=== PATIENT | female | born 1985 | race Caucasian/White ===

== ENCOUNTER 2025-04-25 08:46 | Emergency (ER) | payer OTHER, SELFPAY ==
[2025-04-25 08:59] VITALS: BP 131/79
[2025-04-25 09:29] LABS: Hematocrit 41.3 % (37.0-47.0); Hemoglobin 13.8 g/dL (12.0-16.0); Mean Corp Hgb Conc. 33.4 g/dL (33.0-37.0); Mean Corpuscular Volume 90.0 fL (81.0-99.0); Nucleated Red Blood Cells % 0 %; Platelet Count 211 10^3/uL (130-400); Red Cell Dist. Width 12.7 % (11.5-14.5)
[2025-04-25 09:44] LABS: HCG, Serum Qualitative Screen Negative
[2025-04-25 09:48] LABS: ALT (SGPT) 24 U/L (0-35); AST (SGOT) 19 U/L (14-36); Albumin 4.3 g/dl (3.5-5.0); Alkaline Phosphatase 53 U/L (38-126); Blood Urea Nitrogen 17 mg/dl (7-17); Calcium 9.3 mg/dl (8.4-10.2); Carbon Dioxide 28 mmol/L (22-30); Chloride 106 mmol/L (98-107); Glucose 98 mg/dl (70-99); Potassium 3.9 mmol/L (3.5-5.1); Sodium 137 mmol/L (135-145); Total Protein 7.3 g/dl (6.3-8.2); eGFR > 60.00
[2025-04-25 09:52] LABS: Troponin I < 0.012 ng/ml
--- NOTE | 2025-04-25 10:51 | ED.GENMED ---
History of Present Illness
General
Chief Complaint: Headache
Source: patient
Exam Limitations: none
Time Seen by Provider: 04/25/25 10:36
Nursing documentation reviewed up to this point in time: agreed with
History of Present Illness
History of Present Illness:
Patient is a 39-year-old female who presents to the ER for various complaints. She reports over the past several months she has had worsening of her eczema and has been followed up with dermatology for that. She has been under a lot of stress as
several months ago her parents both within 3 weeks apart of each other. She has also been eval by rheumatology for recent joint pain and tested positive for MAURA with plans for repeat blood work in the next several months. Patient
presents today for also evaluation of intermittent chest discomfort and headaches. She reports intermittently she will have some pulsating in her head and yesterday this occurred. She went to urgent care and her blood pressure was okay although at
home it was 139/92. She has no previous history of hypertension. She has had some mild chest tightness denies any shortness of breath. Currently she feels some discomfort behind her both eyes. She has been using Tylenol Motrin for pain. She
denies any recent injury fever chills. She also feels that her face feels off tight she feels as if it is swollen denies any difficulty swallowing redness fever chills.
Phy Exam
General Physical Exam
General Presentation: no apparent distress
General age: appears stated age
General Skin: dry
General Habitus: normal
General Mental: alert
General Hydration: appears well hydrated
ENT Exam
ENT Exam: EOMI and neck supple
Eye Exam
Eye Exam: PERRL and EOMI
Eye Exam General: PERRL: bilateral and EOM intact: bilateral
Pupil Exam: Bilateral: round and reactive
Cardiovascular Exam
Cardiovascular Exam: regular rate/rhythm, no murmur and normal peripheral pulses
Pulmonary Exam
Pulmonary Exam: lungs clear and no respiratory distress
Gastrointestinal Exam
Gastrointestinal Exam: non tender and soft
Neurological Exam
Neurological Exam: alert, oriented x3, no motor deficits, no sensory deficits and speech normal
Raymond Coma Scale
Eye Opening: Spontaneous
Verbal Response: Oriented
Motor Response: Obeys Commands
GCS Total Score: 15
Cerebellar
Cerebellar Function: normal finger to nose
Musculoskeletal Exam
Musculoskeletal Exam: full ROM
Skin Exam
Skin Exam: normal color, warm/dry and other (No obvious redness or swelling to face)
Psychiatric Exam
Psychiatric Exam: normal mood/affect
Course
Orders/Labs/Results
Orders:
Orders
04/25/25 09:06
Electrocardiogram (*1) Urgent
Reason for Study: Abdominal Pain
EKG- Treatment ONCE
Test Result ONCE
04/25/25 09:13
Complete Blood Count/With Diff Urgent
Comprehensive Metabolic Panel Urgent
HCG, Serum Qualitative Screen Urgent
Comment: Notify provider if positive test present
Troponin I Urgent
04/25/25 10:52
CT Head W/o Iv Contrast Urgent
Comment:
Reason For Exam: headaches
Visual Acuity- Treatment ONCE
04/25/25 12:20
Acetaminophen [Tylenol] 1,000 mg PO NOW STA
Abnormal Lab Results
04/25/25
09:13
Creatinine 0.5 L mg/dL
(0.6-1.0)
04/25/25 09:13
04/25/25 09:13
Vital Signs
Initial and Last Documented VS:
Initial Vital Signs
Temp Pulse Resp BP Pulse Ox
98.7 F 80 20 131/79 100
04/25/25 08:59 04/25/25 08:59 04/25/25 08:59 04/25/25 08:59 04/25/25 08:59
Last Documented Vital Signs
Temp Pulse Resp BP Pulse Ox
98.7 F 68 22 120/69 100
04/25/25 08:59 04/25/25 13:00 04/25/25 13:00 04/25/25 13:00 04/25/25 13:00
MDM/Problems Addressed
Differential Diagnosis Includes:
Not limited to viral syndrome, URI
MDM/Problems Addressed:
Patient is a 39-year-old female with multiple complaints presents to the ER for evaluation. She is in no acute distress not hypoxic she does have a history of PCOS and eczema other than that no other significant medical history. She is
well-appearing her workup was unremarkable here including stable vital signs unremarkable labs negative cardiac troponin normal head CT and normal EKG. No acute cause of patient's symptoms however patient is very well-appearing nontoxic stable for
discharge home.. Patient patient has been following with dermatology rheumatology as well as her family doctor. Will have her follow up with her family doctor next of days for reevaluation.
*Radiology
Radiology exam reviewed: radiology read reviewed
*Pulse Oximetry
SaO2: 100
Oxygen Mode of Delivery: Room air
Patient hypoxic: no
*EKG
Interpreted by ED Provider?: Yes
Heart Rate: 78
Rhythm: sinus
Ischemia: no ischemia
*Critical Care Note
Total Time (30-74mins, 75-104mins- exclusive of procedures): Not Applicable
ED Attending Note
-
Portions of this chart may have been created with voice recognition software.� Occasional wrong word or��sound alike� substitutions may have occurred due to the inherent limitations of voice recognition software.
Discharge Plan
Departure
Patient Disposition: Home (Routine Discharge)
Date of Disposition: 04/25/25
Time of Disposition: 13:46
Patient with high blood pressure during this ER visit?: No
Condition: Fair
Covid-19: Not Applicable
Discharge Problem:
Headache
Instructions: Headache, Adult (DC)
Referrals:
UNKNOWN - PT DOES,NOT KNOW [Unknown Provider]
Activity Restrictions/Additional Instructions:
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
Interventions
Interventions:
*Risk Screen - Suicide Last Done: 04/25/25 08:59
*General Assessment Last Done: 04/25/25 08:59
*Neglect/Abuse Screening Last Done: 04/25/25 08:59
*ED- Fall Risk Assessment Last Done: 04/25/25 11:30
*ED COVID-19 Vaccine History Last Done: 04/25/25 11:47
*ED Influenza Vaccine History Last Done: 04/25/25 11:47
ED- Neurological Assessment Last Done: 04/25/25 11:49
Discharge Date and Time
Print Language: LEBANESE
[2025-04-25 11:00] VITALS: BP 109/69
[2025-04-25 11:14] VITALS: BMI 45.8
[2025-04-25 12:18] VITALS: BP 119/71
[2025-04-25] MEDS: TYLENOL 1000 MG PO (12:25)
[2025-04-25 13:00] VITALS: BP 120/69
== END 2025-04-25 14:05 | disposition home or self-care (01) ==
LOC: EMR 08:46
PROVIDERS: Student in an Organized Health Care Education/Training Program; EMERGENCY PHYSICIAN Emergency Medicine; FAMILY PHYSICIAN Family Medicine
DX: R51.9 Headache, unspecified (principal); L30.9 Dermatitis, unspecified; E28.2 Polycystic ovarian syndrome; Z63.4 Disappearance and death of family member
CPT/HCPCS: 99284; 70450; 80053; 84484; 84703; 85025; 93005